=== PATIENT | female | born 1995 | race Caucasian/White ===

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

== ENCOUNTER 2017-05-13 22:53 | Emergency (ER) | payer OTHER ==
[2017-05-13 23:35] VITALS: BP 114/61; PULSE 84; RESP 18; TEMP 99
[2017-05-13] MEDS ORDERED: AMOXIC-POT CLAV 875-125MG 1 EACH TAB PO STA (23:49)
--- NOTE | 2017-05-13 23:52 | ED ---
Medical Clearance HPI - General Chief complaint: Medical Clearance Stated complaint: HALF-WAY CLEARANCE Time Seen by Provider: 05/13/17 23:01 Source: patient Mode of arrival: ambulatory - History of Present Illness Initial comments: 21-year-old female patient presents to the emergency department accompanied by [employer]. They are requesting medical clearance. Patient admits to using crack this evening. Patient states that she has done this in the past and currently feels normal. She denies any injuries or physical symptoms. Patient states that over the last couple of weeks she has had bilateral ear pain and fullness with decreased hearing. She states that this has been bothering her but she has been unable to get it checked out. She denies any fevers or chills. Denies any upper respiratory symptoms. Patient denies any recent rash, shortness breath, chest pain, abdominal pain, nausea, vomiting, diarrhea, constipation, back pain, numbness, tingling, dizziness, weakness, hematuria, dysuria, urinary urgency, urinary frequency, headache, visual changes, or any other complaints. Home medications: Previous Rx's Medication Instructions Recorded Amoxic-Pot Clav 875-125Mg 1 tab PO Q12HR #20 tablet 05/13/17 [Augmentin 875-125] Allergies/Adverse reactions: Allergies Allergy/AdvReac Type Severity Reaction Status Date / Time Tetanus Vaccines and Toxoid AdvReac Swelling Verified 05/13/17 23:36 Review of Systems ROS Statement: Those systems with pertinent positive or pertinent negative responses have been documented in the HPI. ROS Other: All systems not noted in ROS Statement are negative. Past Medical History Past Medical History: No Reported History History of Any Multi-Drug Resistant Organisms: None Reported Past Surgical History: No Surgical Hx Reported Past Psychological History: Depression Smoking Status: Never smoker Past Alcohol Use History: None Reported Past Drug Use History: Cocaine, Heroin, Marijuana General Exam Limitations: no limitations General appearance: alert, in no apparent distress, other (Physical well- developed, well-nourished adult female patient in no acute distress. Vital signs upon presentation are temperature 99.0F, pulse 84, respirations 18, blood pressure 114/61, pulse ox 96% on room air.) Head exam: Present: atraumatic, normocephalic, normal inspection Eye exam: Present: normal appearance, PERRL, EOMI. Absent: scleral icterus, conjunctival injection, periorbital swelling ENT exam: Present: normal exam, normal oropharynx, mucous membranes moist. Absent: TM's normal bilaterally (Bilateral tympanic membranes are bulging and erythematous. No canal erythema or drainage. No mastoid tenderness.) Respiratory exam: Present: normal lung sounds bilaterally. Absent: respiratory distress, wheezes, rales, rhonchi, stridor Cardiovascular Exam: Present: regular rate, normal rhythm, normal heart sounds. Absent: systolic murmur, diastolic murmur, rubs, gallop, clicks GI/Abdominal exam: Present: soft, normal bowel sounds. Absent: distended, tenderness, guarding, rebound, rigid Back exam: Present: normal inspection Neurological exam: Present: alert, oriented X3, CN II-XII intact Psychiatric exam: Present: normal affect, normal mood Skin exam: Present: warm, dry, intact, normal color. Absent: rash Course Vital Signs 05/13/17 23:31 Temperature 99.0 F Pulse Rate 84 Respiratory 18 Rate Blood Pressure 114/61 O2 Sat by Pulse 96 Oximetry Medical Decision Making - Medical Decision Making 21-year-old female patient is brought in by [employer] for medical clearance to accompany her to group home. Physical examination is unremarkable. Patient denies any physical symptoms or concerns other than bilateral ear pain and decreased hearing. Physical examination does reveal bilateral tympanic membrane erythema and bulging. Patient will be started on Augmentin. She'll be cleared medically for group home. Disposition Clinical Impression: Bilateral otitis media, Substance abuse Disposition: HOME SELF-CARE Condition: Good Instructions: Otitis Media (ED), Polysubstance Abuse (ED) Additional Instructions: Patient is medically clear for group home. Complete antibiotic prescription in full. Follow-up with your primary care physician upon completion of the antibiotics to ensure clearance of infection. If symptoms persist follow-up with ears nose and throat specialist. Return here immediately for any new, worsening, or concerning symptoms. Prescriptions: Amoxic-Pot Clav 875-125Mg [Augmentin 875-125] 1 tab PO Q12HR #20 tablet Referrals: Sariah Keller DO [Primary Care Provider] - 1-2 days Time of Disposition: 23:52
== END 2017-05-14 00:08 | disposition home or self-care (01) ==
LOC: EC 22:53
DX: H66.93 Otitis media, unspecified, bilateral (principal); F19.10 Other psychoactive substance abuse, uncomplicated; Z88.7 Allergy status to serum and vaccine
CPT/HCPCS: 99282

== ENCOUNTER 2017-12-31 16:56 | Emergency (ER) | payer OTHER ==
[2017-12-31 17:05] VITALS: BP 115/67; PULSE 90; TEMP 98.1
[2017-12-31] MEDS ORDERED: NALOXONE 0.4 MG/ML 10 ML VIAL IVP STA (17:34)
[2017-12-31] MEDS ORDERED: ONDANSETRON 4 MG/2 ML VIAL IVP STA (17:34)
[2017-12-31] MEDS ORDERED: SODIUM CHLORIDE 0.9% 500 ML IV STA (17:34)
[2017-12-31 17:45] VITALS: RESP 14
--- NOTE | 2017-12-31 18:03 | ED ---
General Adult HPI - General Chief complaint: Overdose Stated complaint: Overdose Time Seen by Provider: 12/31/17 17:00 Source: patient, RN notes reviewed, old records reviewed Mode of arrival: EMS Limitations: no limitations - History of Present Illness Initial comments: This is a 22-year-old female to the ER for evaluation. Patient presents today for evaluation regards to overdose. No history of psychiatric illness no history of depression or history of drug abuse. Patient's has a known history of opiate use. Patient presented ER today for heroin overdose. - Related Data Home Medications Medication Instructions Recorded Confirmed No Known Home Medications 12/31/17 12/31/17 Allergies Allergy/AdvReac Type Severity Reaction Status Date / Time Tetanus Vaccines and Toxoid AdvReac Swelling Verified 12/31/17 17:19 Review of Systems ROS Statement: Those systems with pertinent positive or pertinent negative responses have been documented in the HPI. ROS Other: All systems not noted in ROS Statement are negative. Past Medical History Past Medical History: No Reported History History of Any Multi-Drug Resistant Organisms: None Reported Past Surgical History: No Surgical Hx Reported Past Psychological History: Depression Smoking Status: Current every day smoker Past Alcohol Use History: None Reported Past Drug Use History: Heroin General Exam Limitations: no limitations General appearance: alert, in no apparent distress, lethargic Head exam: Present: atraumatic, normocephalic, normal inspection Eye exam: Present: normal appearance, PERRL, EOMI. Absent: scleral icterus, conjunctival injection, periorbital swelling ENT exam: Present: normal exam, mucous membranes moist Neck exam: Present: normal inspection. Absent: tenderness, meningismus, lymphadenopathy Respiratory exam: Present: normal lung sounds bilaterally. Absent: respiratory distress, wheezes, rales, rhonchi, stridor Cardiovascular Exam: Present: regular rate, normal rhythm, normal heart sounds. Absent: systolic murmur, diastolic murmur, rubs, gallop, clicks GI/Abdominal exam: Present: soft, normal bowel sounds. Absent: distended, tenderness, guarding, rebound, rigid Extremities exam: Present: normal inspection, full ROM, normal capillary refill. Absent: tenderness, pedal edema, joint swelling, calf tenderness Back exam: Present: normal inspection Neurological exam: Present: alert, oriented X3, CN II-XII intact Psychiatric exam: Present: normal affect, normal mood Skin exam: Present: warm, dry, intact, normal color. Absent: rash Course Vital Signs 12/31/17 12/31/17 16:58 17:44 Temperature 98.1 F Pulse Rate 90 Respiratory 18 14 Rate Blood Pressure 115/67 - Reevaluation(s) Reevaluation #1: 12/31/17 18:03 Patient's level of consciousness improved with Narcan Medical Decision Making - Medical Decision Making 22-year-old female the ER status post heroin abuse and overdose. Patient given Narcan, patient awake alert and can be discharged home Disposition Clinical Impression: Substance-induced psychotic disorder, Heroin use disorder, severe, dependence, Drug overdose, Poisoning by opiate or related narcotic Disposition: HOME SELF-CARE Condition: Good Instructions: Opioid Use Disorder (ED) Is patient prescribed a controlled substance at d/c from ED?: No Referrals: Sariah Keller DO [Primary Care Provider] - 1-2 days
== END 2017-12-31 18:33 | disposition home or self-care (01) ==
LOC: EC 16:56
DX: F11.20 Opioid dependence, uncomplicated (principal); T40.1X1A Poisoning by heroin, accidental (unintentional), initial encounter; F19.959 Other psychoactive substance use, unspecified with psychoactive substance-induced psychotic disorder, unspecified; F32.9 Major depressive disorder, single episode, unspecified; F17.200 Nicotine dependence, unspecified, uncomplicated; Z88.7 Allergy status to serum and vaccine
CPT/HCPCS: 99284; 96374; 96375; J2310; J2405

== ENCOUNTER 2019-05-24 11:06 | Emergency (ER) | payer OTHER ==
[2019-05-24 11:13] VITALS: TEMP 99.1
[2019-05-24] MEDS ORDERED: SODIUM CHLORIDE 0.9% 1,000 ML IV ONE (11:30)
--- NOTE | 2019-05-24 11:41 | ED ---
General Adult HPI - General Chief complaint: Altered Mental Status Stated complaint: Overdose Time Seen by Provider: 05/24/19 11:10 Source: patient, EMS, RN notes reviewed, old records reviewed Limitations: no limitations - History of Present Illness Initial comments: This is a 23-year-old female who presents emergency Department and states that she is a drug addict. Patient states she's been clean for a little while. Patient states that this morning she took 5 mg and snorted it. Patient denies any other drug use. Patient denies any drinking. Patient states it's the first time in a while that she has done any drugs. Patient denies any chest pain difficulty breathing first breath per patient denies any headache. Patient denies any abdominal pain. Patient denies any nausea vomiting diarrhea. Patient denies any fever chills. Patient denies any trauma. - Related Data Home Medications Medication Instructions Recorded Confirmed Albuterol Inhaler [Ventolin Hfa 2 puff INHALATION RT-Q4H PRN 05/24/19 05/24/19 Inhaler] Amoxic-Pot Clav 875-125Mg 1 tab PO BID 05/24/19 05/24/19 [Augmentin 875-125] Cetirizine HCl 10 mg PO DAILY 05/24/19 05/24/19 Fluticasone Nasal [place] [Flonase 1 spray EA NOSTRIL BID 05/24/19 05/24/19 Nasal [place]] Ibuprofen [Motrin] 600 mg PO Q8HR PRN 05/24/19 05/24/19 Allergies Allergy/AdvReac Type Severity Reaction Status Date / Time Tetanus Vaccines and Toxoid AdvReac Swelling Verified 05/24/19 12:12 Review of Systems ROS Statement: Those systems with pertinent positive or pertinent negative responses have been documented in the HPI. ROS Other: All systems not noted in ROS Statement are negative. Past Medical History Past Medical History: No Reported History History of Any Multi-Drug Resistant Organisms: None Reported Past Surgical History: No Surgical Hx Reported Past Psychological History: Depression Smoking Status: Current every day smoker Past Alcohol Use History: None Reported Past Drug Use History: Heroin General Exam - General Exam Comments Initial Comments: GENERAL: Patient is well-developed and well-nourished. Patient is nontoxic and well- hydrated and is in no acute distress. Patient is very tired but easily arousable. ENT: Neck is soft and supple. No significant lymphadenopathy is noted. Oropharynx is clear. Moist mucous membranes. Neck has full range of motion without eliciting any pain. EYES: The sclera were anicteric and conjunctiva were pink and moist. Extraocular movements were intact and pupils were equal round and reactive to light. Eyelids were unremarkable. PULMONARY: Unlabored respirations. Good breath sounds bilaterally. No audible rales rhonchi or wheezing was noted. CARDIOVASCULAR: There is a regular rate and rhythm without any murmurs gallops or rubs. ABDOMEN: Soft and nontender with normal bowel sounds. SKIN: Skin is clear with no lesions or rashes and otherwise unremarkable. NEUROLOGIC: Patient is alert and oriented x3. Cranial nerves II through XII are grossly intact. Motor and sensory are also intact. Normal speech, volume and content. Symmetrical smile. MUSCULOSKELETAL: Normal extremities with adequate strength and full range of motion. LYMPHATICS: No significant lymphadenopathy is noted PSYCHIATRIC: Normal psychiatric evaluation. Limitations: no limitations Course Vital Signs 05/24/19 11:11 Temperature 99.1 F Pulse Rate 130 H Respiratory 10 L Rate Blood Pressure 131/61 O2 Sat by Pulse 88 L Oximetry Medical Decision Making - Medical Decision Making Patient became more alert and she was in the emergency department. She still was a little bit tired but she was alert and oriented 4 was able to ambulate without problem or stumbling. Patient was told that she needed to stay so that we could make sure that she did not become lethargic. Patient refused she stated she wanted to sign out AMA she lives things to do and she was adamant about this. Patient signed out AMA understanding that symptoms may worsen upon discharge - Lab Data Lab Results 05/24/19 05/24/19 Range/Units 12:00 12:00 Urine Color [place] Urine Appearance Slightly Cloudy H (Clear) Urine pH 6.0 (5.0-8.0) Ur Specific [place] 1.030 (1.001-1.035) Urine Protein 1+ (Negative) Urine Glucose (UA) 1+ H (Negative) Urine Ketones Negative (Negative) Urine Blood Negative (Negative) Urine Nitrite Negative (Negative) Urine Bilirubin Negative (Negative) Urine Urobilinogen <2.0 (<2.0) mg/dL Ur Leukocyte Esterase Negative (Negative) Urine RBC 1 (0-5) /hpf Urine WBC 10 H (0-5) /hpf Ur Squamous Epith Cells 11 H (0-4) /hpf Urine Bacteria Rare H (None) /hpf Cellular Casts 1 (0) /lpf Hyaline Casts 1 (0-2) /lpf Urine Mucus Many H (None) /hpf Urine Opiates Screen Not Detected (NotDetected) Ur Oxycodone Screen Not Detected (NotDetected) Urine Methadone Screen Not Detected (NotDetected) Ur Propoxyphene Screen Not Detected (NotDetected) Ur Barbiturates Screen Not Detected (NotDetected) U Tricyclic Antidepress Not Detected (NotDetected) Ur Phencyclidine Scrn Not Detected (NotDetected) Ur Amphetamines Screen Not Detected (NotDetected) U Methamphetamines Scrn Not Detected (NotDetected) U Benzodiazepines Scrn Not Detected (NotDetected) Urine Cocaine Screen Not Detected (NotDetected) U Marijuana (THC) Screen Not Detected (NotDetected) Disposition Clinical Impression: Opiate overdose Disposition: Left Against Medical Advice Instructions (If sedation given, give patient instructions): Narcotic Safety (ED) Referrals: None,Stated [Primary Care Provider] - 1-2 days Time of Disposition: 12:49
[2019-05-24 12:18] LABS: Amphetamine Screen,Urine Not Detected (NotDetected); Barbiturate Screen,Urine Not Detected (NotDetected); Benzodiazepines Screen,Urine Not Detected (NotDetected); Cocaine Screen,Urine Not Detected (NotDetected); Methadone Screen, Urine Not Detected (NotDetected); Opiate Screen,Urine Not Detected (NotDetected); Oxycodone Screen, Urine Not Detected (NotDetected); Phencyclidine Screen,Urine Not Detected (NotDetected); Tricyclic Antidepressant,Urine Not Detected (NotDetected); Urn Cannabinoid Scrn Not Detected (NotDetected)
[2019-05-24 12:35] LABS: Bacteria,Urine Rare /hpf; Cellular Casts,Urine 1 /lpf (0); Hyaline Casts,Urine 1 /lpf (0-2); Mucus,Urine Many /hpf; RBC,Urine 1 /hpf (0-5); Squamous Epithelial Cell,Urine 11 /hpf (0-4); WBC,Urine 10 /hpf (0-5)
[2019-05-24 12:37] LABS: Appearance,Urine Slightly Cloudy (Clear); Color,Urine Amber; Protein,Urine 1+ (Negative)
[2019-05-24 12:38] LABS: Bilirubin,Urine Negative (Negative); Blood,Urine Negative (Negative); Glucose,Urine (UA) 1+ (Negative); Ketones,Urine Negative (Negative); Leukocyte Esterase,Urine Negative (Negative); Nitrite,Urine Negative (Negative); Urobilinogen,Urine <2.0 mg/dL (<2.0)
[2019-05-24 13:00] VITALS: BP 121/87; PULSE 115; RESP 18
== END 2019-05-24 13:00 | disposition left against medical advice (07) ==
LOC: EC 11:06
DX: T40.601A Poisoning by unspecified narcotics, accidental (unintentional), initial encounter (principal); F17.200 Nicotine dependence, unspecified, uncomplicated; Z79.51 Long term (current) use of inhaled steroids; Z79.899 Other long term (current) drug therapy; Z88.7 Allergy status to serum and vaccine
CPT/HCPCS: 80306; 81001; 96360; 99285

== ENCOUNTER 2019-05-24 21:48 | Emergency (ER) | payer OTHER ==
[2019-05-24 21:59] VITALS: PULSE 100; RESP 18; TEMP 98.6
--- NOTE | 2019-05-24 22:20 | ED ---
Overdose HPI - General Chief Complaint: Overdose Stated Complaint: Overdose Source: patient, EMS Mode of arrival: EMS Limitations: no limitations - History of Present Illness Initial Comments: Indigo is a 23-year-old female with a history of substance abuse. Patient was recently living in a [facility]-[place] home, she been clean for 30 days, last night she obtained fentanyl and was using. This morning she was found to be positive on her random drug testing was subsequently sent to the hospital for evaluation. Patient was released from her three-quarter's home and left the hospital with her mother went to her mother's home. Patient reports she still had Karlos in her possession and continue to use throughout the day. Patient reports snorting fentanyl multiple times. She states that she previously had a high tolerance was using the same amount she is to and must of overdose. Her mother found her and treat her with a milligrams of intranasal fentanyl. Patient then became more awake and alert, EMS arrived on scene and transported patient to the hospital. Patient adamantly denies any suicidal thoughts or thoughts of self- harm. She reports this was an accidental overdose. She reports that her visit earlier was due to being positive for fentanyl but not an overdose. Patient states that she thinks this is just due to her decreased tolerance. - Related Data Home Medications Medication Instructions Recorded Confirmed Albuterol Inhaler [Ventolin Hfa 2 puff INHALATION RT-Q4H PRN 05/24/19 05/24/19 Inhaler] Amoxic-Pot Clav 875-125Mg 1 tab PO BID 05/24/19 05/24/19 [Augmentin 875-125] Cetirizine HCl 10 mg PO DAILY 05/24/19 05/24/19 Fluticasone Nasal [place] [Flonase 1 spray EA NOSTRIL BID 05/24/19 05/24/19 Nasal [place]] Ibuprofen [Motrin] 600 mg PO Q8HR PRN 05/24/19 05/24/19 Previous Rx's Medication Instructions Recorded Naloxone HCl [Narcan] 4 mg NASAL ONCE PRN #2 units 05/25/19 Allergies Allergy/AdvReac Type Severity Reaction Status Date / Time Tetanus Vaccines and Toxoid AdvReac Swelling Verified 05/24/19 12:12 Review of Systems ROS Statement: Those systems with pertinent positive or pertinent negative responses have been documented in the HPI. ROS Other: All systems not noted in ROS Statement are negative. Past Medical History Past Medical History: No Reported History History of Any Multi-Drug Resistant Organisms: None Reported Past Surgical History: No Surgical Hx Reported Past Psychological History: Depression Smoking Status: Current every day smoker Past Alcohol Use History: None Reported Past Drug Use History: Heroin General Exam - General Exam Comments Initial Comments: Physical Exam GENERAL: Patient is well-developed and well-nourished. Patient is nontoxic and well-hydrated and is in no distress. HENT: Normocephalic, Atraumatic. EYES: PERRL, EOMI PULMONARY: Unlabored respirations. CARDIOVASCULAR: RRR Warm and well perfused extremities ABDOMEN: Non-distended SKIN: No rashes or bruising : Deferred NEUROLOGIC: Alert and oriented Normal speech Normal gait MUSCULOSKELETAL: Moving all extremities with no apparent injury PSYCHIATRIC: No SI/HI Limitations: no limitations Course Vital Signs 05/24/19 05/25/19 21:53 00:25 Temperature 98.6 F Pulse Rate 100 100 Respiratory 18 18 Rate Blood Pressure 123/77 121/87 O2 Sat by Pulse 100 98 Oximetry Medical Decision Making - Medical Decision Making Patient was seen and evaluated history was obtained from patient, mother and EMS 23-year-old female with a history of narcotic abuse who was clean for 30 days and begin using again last night, reports snorting Karlos throughout the day today, was found by her mother to be minimally responsive and was given intranasal fentanyl with improvement in her mental status and breathing. Patient adamantly denies any suicidal ideation or intent to hurt herself. Patient believes her overdose is secondary to previously having a tolerance which has decreased secondary to her sobriety. Mom states she hasn't noticed any suicidal statements or thoughts. Patient is not petitioned. Patient was observed for 2 hours, remained awake alert oriented with no acute distress therefore was discharged home in stable condition. Patient was provided with a prescription for Narcan upon discharge Disposition Clinical Impression: Accidental drug overdose Disposition: HOME SELF-CARE Condition: Stable Instructions (If sedation given, give patient instructions): Adult Overdose (ED) Prescriptions: Naloxone HCl [Narcan] 4 mg NASAL ONCE PRN #2 units PRN Reason: Respiratory Distress Is patient prescribed a controlled substance at d/c from ED?: No Referrals: None,Stated [Primary Care Provider] - 1-2 days
--- NOTE | 2019-05-24 23:10 | XR ---
EXAMINATION TYPE: XR chest 2V DATE OF EXAM: 05/24/2019 COMPARISON: NONE HISTORY: Overdose TECHNIQUE: FINDINGS: Heart and mediastinum are normal. Lungs are clear. Diaphragm is normal. Bony thorax appears normal. IMPRESSION: Normal chest
[2019-05-25 00:28] VITALS: BP 121/87
== END 2019-05-25 00:50 | disposition home or self-care (01) ==
LOC: EC 21:48
DX: T40.4X1A Poisoning by other synthetic narcotics, accidental (unintentional), initial encounter (principal); F17.200 Nicotine dependence, unspecified, uncomplicated; Z79.899 Other long term (current) drug therapy; Z88.7 Allergy status to serum and vaccine; Y92.009 Unspecified place in unspecified non-institutional (private) residence as the place of occurrence of the external cause
CPT/HCPCS: 71046; 99284

== ENCOUNTER 2019-12-16 21:44 | Inpatient (IN) | payer MEDICAID, OTHER ==
--- NOTE | 2019-12-16 22:10 | ED ---
Psych HPI - General Source: family, police, RN notes reviewed, old records reviewed Mode of arrival: ambulatory - History of Present Illness MD Complaint: suicidal ideation, altered mental status Associated Psychiatric Symptoms: depression, suicidal ideation History of same: Yes Quality: constant Improves With: none, medication Associated Symptoms: confusion Treatments Prior to Arrival: placed on mental health hold If Self Harm: admits thoughts of self harm <Scar Humphrey - Last Filed: 12/16/19 22:07> <Sarbjit Dhillon - Last Filed: 12/17/19 01:56> - General Chief Complaint: Psychiatric Symptoms Stated Complaint: Mental Health Time Seen by Provider: 12/16/19 21:55 - History of Present Illness Initial Comments: This is a 24 female to the ED compaliing of need for psychiatric evaluation, no medical history, history of psychiatric illness, patient presents by PD under petition (Scar Humphrey) - Related Data Home Medications Medication Instructions Recorded Confirmed Cetirizine HCl 10 mg PO DAILY 05/24/19 12/16/[address] [place] [Flonase 1 spray EA NOSTRIL DAILY 05/24/19 12/16/[address] [place]] Vivitrol Injection 1 injection IM ONCE 12/16/19 12/16/19 Allergies Allergy/AdvReac Type Severity Reaction Status Date / Time Tetanus Vaccines and Toxoid AdvReac Swelling Verified 12/16/19 23:39 Review of Systems ROS Other: All systems not noted in ROS Statement are negative. <Scar Humphrey - Last Filed: 12/16/19 22:07> ROS Other: All systems not noted in ROS Statement are negative. <Sarbjit Dhillon - Last Filed: 12/17/19 01:56> ROS Statement: Those systems with pertinent positive or pertinent negative responses have been documented in the HPI. Past Medical History Past Medical History: No Reported History Additional Past Medical History / Comment(s): bacterial vaginosis, depression History of Any Multi-Drug Resistant Organisms: None Reported Past Surgical History: No Surgical Hx Reported Past Psychological History: Depression Smoking Status: Current every day smoker Past Alcohol Use History: None Reported Past Drug Use History: Heroin <Scar Humphrey - Last Filed: 12/16/19 22:07> General Exam Limitations: no limitations General appearance: alert, in no apparent distress Head exam: Present: atraumatic, normocephalic, normal inspection Eye exam: Present: normal appearance, PERRL, EOMI. Absent: scleral icterus, conjunctival injection, periorbital swelling ENT exam: Present: normal exam, mucous membranes moist Neck exam: Present: normal inspection. Absent: tenderness, meningismus, lymphadenopathy Respiratory exam: Present: normal lung sounds bilaterally. Absent: respiratory distress, wheezes, rales, rhonchi, stridor Cardiovascular Exam: Present: regular rate, normal rhythm, normal heart sounds. Absent: systolic murmur, diastolic murmur, rubs, gallop, clicks GI/Abdominal exam: Present: soft, normal bowel sounds. Absent: distended, tenderness, guarding, rebound, rigid Extremities exam: Present: normal inspection, full ROM, normal capillary refill. Absent: tenderness, pedal edema, joint swelling, calf tenderness Back exam: Present: normal inspection Neurological exam: Present: alert, oriented X3, CN II-XII intact Psychiatric exam: Present: normal affect, normal mood Skin exam: Present: warm, dry, intact, normal color. Absent: rash <Scar Humphrey - Last Filed: 12/16/19 22:07> Course <Scar Humphrey - Last Filed: 12/16/19 22:07> Vital Signs 12/16/19 21:44 Temperature 98.1 F Pulse Rate 78 Respiratory 20 Rate Blood Pressure 110/65 O2 Sat by Pulse 97 Oximetry - Reevaluation(s) Reevaluation #1: 12/16/19 22:10 Medical records reviewed 12/16/19 22:10 Medically clear for psychiatric evaluation (Scar Humphrey) Medical Decision Making <Sarbjit Dhillon - Last Filed: 12/17/19 01:56> - Medical Decision Making I did go to see the patient for purposes of filing the clinical certification. The patient had just finished the EPS evaluation. At this time she is angry, demanding to leave. She is refusing to discuss the episode with me. Clinical certificate is filed as patient not forthcoming regarding the matters leading to her arrival here. (Sarbjit Dhillon) Disposition <Scar Humphrey - Last Filed: 12/16/19 22:07> <Sarbjit Dhillon - Last Filed: 12/17/19 01:56> Clinical Impression: Mood disorder Disposition: ADMITTED IP TO THIS [facility] Condition: Undetermined Referrals: None,Stated [Primary Care Provider] - 1-2 days
[2019-12-17] MEDS ORDERED: ZIPRASIDONE 20 MG VIAL IM PRN (02:26)
[2019-12-17] MEDS ORDERED: MAG HYDROX/AL HYDROX/SIMETH 30 ML CUP PO PRN (02:26)
[2019-12-17] MEDS ORDERED: ACETAMINOPHEN TAB 325 MG TAB PO PRN (02:26)
[2019-12-17] MEDS ORDERED: MAGNESIUM HYDROXIDE 2,400 MG/10 ML CUP PO PRN (02:26)
[2019-12-17] MEDS ORDERED: IBUPROFEN 400 MG TAB PO PRN (03:29)
--- NOTE | 2019-12-17 06:13 | P.MDCNMH ---
History of Present Illness H&P Date: 12/17/19 Chief Complaint: medical evaluation 24 year old female with no significant past medical history patient admits to history of IVDA (cocain , heroin) she is trying to quit, but claims that she keeps relapsing. she relapsed today and snorted heroin, and she believes that her boyfriend walked in and did not know that she relapsed, she might have also said something , and made some suicidal threats, for which her boyfriend called police and petitioned her for psych evaluation. she currently denies any suicidal or homicidal ideation. she denies any medical complaints, denies any fever, chills, chest pain or SOB. she reports some mild headache after she just threw up, because she ate so fast multiple snack. she feels that she is still high Review of Systems Pertinent positives as noted in HPI. All other systems were reviewed and are negative Past Medical History Past Medical History: No Reported History Additional Past Medical History / Comment(s): bacterial vaginosis, depression History of Any Multi-Drug Resistant Organisms: None Reported Past Surgical History: No Surgical Hx Reported Past Psychological History: Depression Smoking Status: Current every day smoker Past Alcohol Use History: None Reported Past Drug Use History: Heroin - Past Family History Family Family Medical History: No Reported History Medications and Allergies Home Medications Medication Instructions Recorded Confirmed Type Cetirizine HCl 10 mg PO DAILY 05/24/19 12/16/19 History Fluticasone Nasal [place] [Flonase 1 spray EA NOSTRIL DAILY 05/24/19 12/16/19 History Nasal [place]] Vivitrol Injection 1 injection IM ONCE 12/16/19 12/16/19 History Allergies Allergy/AdvReac Type Severity Reaction Status Date / Time Tetanus Vaccines and Toxoid AdvReac Swelling Verified 12/16/19 23:39 Physical Exam Vitals: Vital Signs Temp Pulse Pulse Resp BP BP Pulse Ox 12/17/19 02:50 97.5 F L 92 18 114/67 98 12/16/19 21:44 98.1 F 78 20 110/65 97 Intake and Output 12/16/19 12/16/19 12/17/19 14:59 22:59 06:59 Other: Weight 50.349 kg Constitutional: No acute distress, conversant, pleasant Eyes: Anicteric sclerae, moist conjunctiva, Pupils equal round reactive to light ENMT: NC/AT Oropharynx clear, no erythema, or exudates Neck: Supple, FROM, no masses, or JVD No carotid bruits No thyromegaly Lungs: Clear to auscultation Clear to percussion Normal respiratory effort, no accessory muscle use Cardiovascular: Heart regular in rate and rhythm, No murmurs, gallops, or rubs No peripheral edema Abdominal: Soft Nontender, no guarding, rebound or rigidity Abdomen moving with respiration Normoactive bowel sounds No hepatomegaly, No splenomegaly No palpable mass No abdominal wall hernia noted Skin: Normal temperature, tone, texture, turgor No induration No subcutaneous nodules No rash, lesions No ulcers Extremities: No digital cyanosis No clubbing Pedal pulses intact and symmetrical Radial pulses intact and symmetrical No calf tenderness Psychiatric: Alert and oriented to person, place and time Appropriate affect fair judgement Neuro Muscles Strength 5/5 in all 4 extremities Sensation to light touch grossly present throughout Cranial nerves II-XII grossly intact No focal sensory deficits Lymphatics: no palpable cervical or supraclavicular , or inguinal lymph nodes Cranial Nerve Examination - Cranial Nerves Cranial Nerve II- Optic: Intact Cranial Nerve III- Oculomotor: Intact Cranial Nerve IV- Trochlear: Intact Cranial Nerve V- Trigeminal: Intact Cranial Nerve - Abducens: Intact Cranial Nerve VII- Facial: Intact Cranial Nerve VIII- Auditory: Intact Cranial Nerve IX- Glossopharyngeal: Intact Cranial Nerve X- Vagus: Intact Cranial Nerve XI- Accessory: Intact Cranial Nerve XII- Hypoglossal: Intact Assessment and Plan Assessment: Suicidal ideation Heroin abuse Management per psych polysubstance abuse headache, symptomtic control with motrin no focal neuro deficits follow up labs Thank you for allowing us to participate in the care of this patient. We will follow peripherally. Do not hesitate to contact us with questions. Someone can be reached from the [facility] hospitalist group at all hours of the day at [phone].
[2019-12-17] MEDS: NICOTINE 14MG/24HR PATCH TRANSDERM SCH (10:06)
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
[2019-12-17] MEDS: LORazepam 1 MG TAB PO PRN ×2 (12:47→20:36)
[2019-12-17] MEDS: lamoTRIgine 25 MG TAB PO SCH ×2 (16:08→20:36)
[2019-12-18 06:26] VITALS: RESP 16; TEMP 98.1
[2019-12-18] MEDS: lamoTRIgine 25 MG TAB PO SCH (08:44)
[2019-12-18] MEDS: NICOTINE 14MG/24HR PATCH TRANSDERM SCH (08:45)
[2019-12-18 08:46] VITALS: BP 119/54; PULSE 105
[2019-12-18] MEDS ORDERED: lamoTRIgine 25 MG TAB PO SCH (09:00)
[2019-12-18 09:46] LABS: Basophils % (A) 1 %; Eosinophils # (A) 0.1 k/uL (0-0.7); Eosinophils % (A) 1 %; HCT 44.3 % (34.0-46.0); HGB 13.7 gm/dL (11.4-16.0); Lymphocytes # (A) 1.2 k/uL (1.0-4.8); Lymphocytes % (A) 18 %; MCH 28.6 pg (25.0-35.0); MCV 92.2 fL (80.0-100.0); Mean Platelet Volume 7.4; Monocytes # (A) 0.3 k/uL (0-1.0); Monocytes % (A) 4 %; Neutrophils % (A) 74 %; Platelet Count 244 k/uL (150-450); RDW 13.8 % (11.5-15.5); WBC 6.7 k/uL (3.8-10.6)
--- NOTE | 2019-12-18 10:00 | DS ---
DISCHARGE SUMMARY DATE OF ADMISSION: 12/17/2019 DATE OF DISCHARGE: 12/18/2019 CONSULTATIONS: [employer] Dr. De La Paz for history and physical and medical management. DISCHARGE DIAGNOSIS: 1. Opiate use disorder. 2. Mood disorder, not otherwise specified. 3. Personality disorder. 4. Nicotine dependence. HISTORY OF PRESENT ILLNESS: The patient is a 24-year-old single female with extensive history of heroin addiction for the last 5 years and she has been in and out of rehab for this. She was clean for 4 weeks prior to her last relapse just one day prior to the hospitalization. The patient was high when she did text her boyfriend telling him that he has to bring Narcan and she is killing herself and do not forget my " song". Her boyfriend did contact the police who filed the petition. For complete history and physical, please refer to my evaluation. HOSPITAL COURSE: When the patient did arrive to the emergency room she was agitated. She refused to give her urine for urine drug screen, even she refused to give her blood for routine blood workup. She did receive p.r.n. medication and seems that she is starting to be more cooperative and she did sign voluntary admission. She was seen on a daily basis and she was attending group therapy. I did discuss with her referral to inpatient substance abuse, as she stable and denied any suicidal or homicidal ideation, but she stated that she does prefer to go to outpatient substance abuse as she just finished [facility] 4 weeks ago. The patient stated that she has been having mood swings all her life, but describes mood swings as waking up very happy and getting numb and down by the end of the day. She did agree to sign med consent to start lamotrigine as a mood stabilizer. The patient denied any side effects from the medication and she was able to tolerate it. She was asking for Ativan p.r.n. so I discontinued the Ativan to avoid cross addiction, especially as it seems that she has a tendency to be addicted to different drugs since age 16. MENTAL STATUS EXAM: At the time of the discharge, the patient is a very young female who looks her stated age. Attention seeking child-like behavior and attitude but easy to redirect. The patient has fair hygiene and grooming. There is no agitation and she is very easy to redirect. Her speech is fluent and non pressured. Reports that her mood is "good". Affect is appropriate to thought content. She denied having any suicidal or homicidal ideation, intent, or plan. She denied any auditory or visual hallucination. There is no evidence of any delusional thought or content. She is alert and oriented x3. Her insight and judgment are improving. IMPRESSION: 1. Opiate use disorder, severe. 2. Mood disorder, not otherwise specified. 3. Personality disorder. 4. Nicotine dependence. PLAN: The patient will be discharged today, as she is refusing referral to inpatient chemical dependency. She did agree to go to outpatient substance abuse at [facility]. The patient is not currently an imminent threat to herself or others. Patient was given 4 week supply of lamotrigine 50 mg twice a day as a mood stabilizer. The patient was instructed to avoid any illicit drug use and abstain completely from heroin. She was informed and educated on the adverse effects of the heroin on her physical and mental health. Patient verbally agree and understood and she will be going to outpatient substance abuse. The patient was instructed to return to the hospital or seek medical care if any symptoms reoccur. MMODL / IJN: [id number] /
[2019-12-18 10:07] LABS: ALT 15 U/L (4-34); AST 24 U/L (14-36); African American GFR (CKD) >90 (>60 ml/min/1.73 sqM); Albumin 4.1 g/dL (3.5-5.0); Alkaline Phosphatase 59 U/L (38-126); Anion Gap 5 mmol/L; Blood Urea Nitrogen 17 mg/dL (7-17); Calcium 9.1 mg/dL (8.4-10.2); Carbon Dioxide 30 mmol/L (22-30); Chloride 105 mmol/L (98-107); Cholesterol 128 mg/dL (<200); Glucose 93 mg/dL (74-99); HDL Cholesterol 54 mg/dL (40-60); LDL Cholesterol,Calculated 66 mg/dL (0-99); Non-African American GFR(CKD) >90 (>60 ml/min/1.73 sqM); Potassium 4.8 mmol/L (3.5-5.1); Sodium 140 mmol/L (137-145); Total Bilirubin 0.7 mg/dL (0.2-1.3); Total Protein 6.8 g/dL (6.3-8.2); Triglycerides 39 mg/dL (<150)
[2019-12-18] MEDS ORDERED: lamoTRIgine 25 MG TAB PO ONE (10:27)
[2019-12-18 18:00] LABS: Hemoglobin A1C 5.1 % (4.0-6.0)
== END 2019-12-18 11:58 | disposition home or self-care (01) | DRG 885 ==
LOC: EC 21:44 → 3MHU 12-17 02:19
PROVIDERS: ADMIT Psychiatry & Neurology Psychiatry; ATTEND Psychiatry & Neurology Psychiatry
DX: F33.9 Major depressive disorder, recurrent, unspecified (principal); R45.851 Suicidal ideations; F11.20 Opioid dependence, uncomplicated; F60.9 Personality disorder, unspecified; F17.200 Nicotine dependence, unspecified, uncomplicated; J30.2 Other seasonal allergic rhinitis; R45.1 Restlessness and agitation; R51 Headache; Z79.899 Other long term (current) drug therapy; Z87.42 Personal history of other diseases of the female genital tract; Z56.0 Unemployment, unspecified; Z91.410 Personal history of adult physical and sexual abuse; Z91.5 Personal history of self-harm; Z88.7 Allergy status to serum and vaccine; Z81.8 Family history of other mental and behavioral disorders; Z81.1 Family history of alcohol abuse and dependence
CPT/HCPCS: 80053; 80061; 82075; 83036; 84443; 85025; 99285

== ENCOUNTER 2019-12-21 21:36 | Emergency (ER) | payer OTHER ==
--- NOTE | 2019-12-21 22:04 | ED ---
Extremity Problem HPI - General Chief complaint: Extremity Problem,Nontraumatic Stated complaint: R Foot Pain Time Seen by Provider: 12/21/19 21:45 Source: patient Mode of arrival: ambulatory Limitations: no limitations - History of Present Illness Initial comments: 24-year-old female patient presents to the emergency department today for evaluation of numbness and tingling to the right leg from the knee down. Patient states that the sensation has a present for the last 2 days. Patient states at times it is worse than others. States when she wakes from sleep the leg will give out on her. Patient states that at times she is unable to perform dorsiflexion. Denies history of similar symptoms. Denies any known injury. Patient states that she did relapse on heroin four days ago so there is possibility she slept weird on it. She denies injecting drugs. She states she snorts heroin. Patient denies any headache, neck pain, back pain, chest pain, shortness of breath, dizziness, weakness, abdominal pain, nausea, vomiting, or difficulties with bowel movements or urination. - Related Data Home Medications Medication Instructions Recorded Confirmed Cetirizine HCl 10 mg PO DAILY 05/24/19 12/16/19 Fluticasone Nasal [place] [Flonase 1 spray EA NOSTRIL DAILY 05/24/19 12/16/19 Nasal [place]] Previous Rx's Medication Instructions Recorded lamoTRIgine [LaMICtal] 50 mg PO BID 30 Days tab 12/18/19 Allergies Allergy/AdvReac Type Severity Reaction Status Date / Time Tetanus Vaccines and Toxoid AdvReac Swelling Verified 12/21/19 21:43 Review of Systems ROS Statement: Those systems with pertinent positive or pertinent negative responses have been documented in the HPI. ROS Other: All systems not noted in ROS Statement are negative. Past Medical History Past Medical History: No Reported History Additional Past Medical History / Comment(s): bacterial vaginosis, depression History of Any Multi-Drug Resistant Organisms: None Reported Past Surgical History: No Surgical Hx Reported Past Psychological History: Depression Smoking Status: Current every day smoker Past Alcohol Use History: None Reported Past Drug Use History: Heroin - Past Family History Family Family Medical History: No Reported History General Exam Limitations: no limitations General appearance: alert, in no apparent distress, other (This is a well- developed, well-nourished adult female patient in no acute distress. Vital signs upon presentation are temperature 98.0F, pulse 87, respirations 16, blood pressure 108/65, pulse ox 99% on room air.) Respiratory exam: Present: normal lung sounds bilaterally. Absent: respiratory distress, wheezes, rales, rhonchi, stridor Cardiovascular Exam: Present: regular rate, normal rhythm, normal heart sounds. Absent: systolic murmur, diastolic murmur, rubs, gallop, clicks GI/Abdominal exam: Present: soft, normal bowel sounds. Absent: distended, tenderness, guarding, rebound, rigid Extremities exam: Present: normal inspection, full ROM, normal capillary refill, other (Skin to the right leg is pink, warm, dry. Cap refills less than 3 seconds. Pedal and posttibial pulses are 2+ and equal bilaterally. There is full active range of motion intact to the right ankle and right knee.). Absent: tenderness, pedal edema, joint swelling, calf tenderness Back exam: Present: normal inspection. Absent: vertebral tenderness Neurological exam: Present: alert, oriented X3, CN II-XII intact Psychiatric exam: Present: normal affect, normal mood Skin exam: Present: warm, dry, intact, normal color. Absent: rash Course Vital Signs 12/21/19 12/21/19 21:37 22:36 Temperature 98.0 F 97.9 F Pulse Rate 87 84 Respiratory 16 18 Rate Blood Pressure 108/65 103/69 O2 Sat by Pulse 99 96 Oximetry Medical Decision Making - Medical Decision Making 24-year-old female patient presents to the emergency department today for evaluation of paresthesia to the right lower leg. Physical examination is unremarkable. She is neurologically intact. Neurovascular status is intact. X-rays of the knee and tib-fib were obtained and were negative. She will be discharged home with a neurology for further evaluation as soon as possible. Return parameters were discussed in detail. She verbalizes understanding and agrees with this plan. - Radiology Data Radiology results: report reviewed, image reviewed Disposition Clinical Impression: Right leg paresthesias Disposition: HOME SELF-CARE Condition: Good Instructions (If sedation given, give patient instructions): Paresthesia (ED) Additional Instructions: Follow-up with neurologist for further evaluation as soon as possible. Follow- up through primary care physician for recheck in 1-2 days. Return to the emergency department for any new, worsening, or concerning symptoms. Is patient prescribed a controlled substance at d/c from ED?: No Referrals: Emily Ferrari MD [REFERRING] - 1-2 days Mike Mcfarland MD [Medical Doctor] - 1-2 days Pradeep Taobr MD [STAFF PHYSICIAN] - 1-2 days Time of Disposition: 22:23
--- NOTE | 2019-12-21 22:17 | XR ---
EXAMINATION TYPE: XR tibia fibula RT DATE OF EXAM: 12/21/2019 COMPARISON: NONE HISTORY: Leg numbness TECHNIQUE: 2 views FINDINGS: Tibia and fibula appear intact. I see no fracture nor dislocation. IMPRESSION: Negative right tibia and fibula exam.
--- NOTE | 2019-12-21 22:18 | XR ---
EXAMINATION TYPE: XR knee complete RT DATE OF EXAM: 12/21/2019 COMPARISON: NONE HISTORY: Leg pain TECHNIQUE: 3 views FINDINGS: Knee joint spaces are normal. I see no fracture nor dislocation. There is no sign of joint effusion. IMPRESSION: Negative right knee exam.
[2019-12-21 22:38] VITALS: BP 103/69; PULSE 84; RESP 18; TEMP 97.9
== END 2019-12-21 22:38 | disposition home or self-care (01) ==
LOC: EC 21:36
DX: R20.2 Paresthesia of skin (principal); F17.200 Nicotine dependence, unspecified, uncomplicated; Z88.7 Allergy status to serum and vaccine
CPT/HCPCS: 99283

== ENCOUNTER 2020-03-10 20:06 | Inpatient (IN) | payer MEDICAID, OTHER ==
--- NOTE | 2020-03-10 21:12 | ED ---
General Adult HPI - General Chief complaint: Psychiatric Symptoms Stated complaint: Mental Health Time Seen by Provider: 03/10/20 20:33 Source: patient, RN notes reviewed, old records reviewed Mode of arrival: ambulatory Limitations: no limitations - History of Present Illness Initial comments: 24-year-old female presenting for mental health evaluation. Increased depression, suicidal ideation. Patient is to illicit drugs. She denies suicide attempt. She has a previous history of self-harm. She states she has had worsening depression and suicidal thoughts over the past several weeks. She is seeking psychiatric evaluation. No physical complaints. - Related Data Home Medications Medication Instructions Recorded Confirmed No Known Home Medications 03/10/20 03/11/20 Allergies Allergy/AdvReac Type Severity Reaction Status Date / Time tuberculin, purified protein Allergy Rash/Hives Verified 03/10/20 21:24 deriva tuberculin,PPD,multi-puncture Allergy Rash/Hives Verified 03/10/20 21:24 Tetanus Vaccines and Toxoid AdvReac Swelling Verified 03/10/20 21:24 Review of Systems ROS Statement: Those systems with pertinent positive or pertinent negative responses have been documented in the HPI. ROS Other: All systems not noted in ROS Statement are negative. Past Medical History Past Medical History: No Reported History Additional Past Medical History / Comment(s): bacterial vaginosis, depression History of Any Multi-Drug Resistant Organisms: None Reported Past Surgical History: No Surgical Hx Reported Past Psychological History: Depression Smoking Status: Current every day smoker Past Alcohol Use History: None Reported Past Drug Use History: Heroin, Marijuana - Past Family History Family Family Medical History: No Reported History General Exam Limitations: no limitations General appearance: alert, in no apparent distress Head exam: Present: atraumatic, normocephalic Eye exam: Present: normal appearance, PERRL ENT exam: Present: normal exam Neck exam: Present: normal inspection. Absent: tenderness, meningismus Respiratory exam: Present: normal lung sounds bilaterally. Absent: respiratory distress Cardiovascular Exam: Present: normal rhythm, tachycardia GI/Abdominal exam: Present: soft. Absent: distended, tenderness, guarding Extremities exam: Present: normal inspection, normal capillary refill. Absent: pedal edema Neurological exam: Present: alert, oriented X3 Psychiatric exam: Present: depressed, anxious, suicidal ideation Skin exam: Present: warm, dry, intact. Absent: cyanosis, diaphoretic Course Vital Signs 03/10/20 20:07 Temperature 98.6 F Pulse Rate 137 H Respiratory 19 Rate Blood Pressure 131/84 O2 Sat by Pulse 97 Oximetry - Reevaluation(s) Reevaluation #1: 03/10/20 21:11 Patient medically cleared awaiting EPS evaluation Reevaluation #2: 03/10/20 2[address] Case signed out to Dr. Humphrey, awaiting EPS evaluation and disposition. Medical Decision Making - Lab Data Result diagrams: 03/11/20 09:52 03/11/20 09:52 Lab Results 03/10/20 03/10/20 03/10/20 Range/Units 21:07 21:07 21:07 Urine Color Yellow Urine Appearance Cloudy H (Clear) Urine pH 6.0 (5.0-8.0) Ur Specific [place] 1.028 (1.001-1.035) Urine Protein 1+ H (Negative) Urine Glucose (UA) Negative (Negative) Urine Ketones 1+ H (Negative) Urine Blood Negative (Negative) Urine Nitrite Negative (Negative) Urine Bilirubin Negative (Negative) Urine Urobilinogen <2.0 (<2.0) mg/dL Ur Leukocyte Esterase Negative (Negative) Urine RBC 10 H (0-5) /hpf Urine WBC 4 (0-5) /hpf Ur Squamous Epith Cells <1 (0-4) /hpf Urine Bacteria Occasional H (None) /hpf Urine Mucus Many H (None) /hpf Urine HCG, Qual Not Detected (Not Detectd) Urine Opiates Screen Detected H (NotDetected) Ur Oxycodone Screen Not Detected (NotDetected) Urine Methadone Screen Not Detected (NotDetected) Ur Propoxyphene Screen Not Detected (NotDetected) Ur Barbiturates Screen Not Detected (NotDetected) U Tricyclic Antidepress Not Detected (NotDetected) Ur Phencyclidine Scrn Not Detected (NotDetected) Ur Amphetamines Screen Not Detected (NotDetected) U Methamphetamines Scrn Detected H (NotDetected) U Benzodiazepines Scrn Not Detected (NotDetected) Urine Cocaine Screen Detected H (NotDetected) U Marijuana (THC) Screen Detected H (NotDetected) Disposition Clinical Impression: Depression, Suicidal ideation Disposition: [facility] Condition: Stable Is patient prescribed a controlled substance at d/c from ED?: No
[2020-03-10 21:35] LABS: Amphetamine Screen,Urine Not Detected (NotDetected); Barbiturate Screen,Urine Not Detected (NotDetected); Benzodiazepines Screen,Urine Not Detected (NotDetected); Cocaine Screen,Urine Detected (NotDetected); Methadone Screen, Urine Not Detected (NotDetected); Opiate Screen,Urine Detected (NotDetected); Oxycodone Screen, Urine Not Detected (NotDetected); Phencyclidine Screen,Urine Not Detected (NotDetected); Tricyclic Antidepressant,Urine Not Detected (NotDetected); Urn Cannabinoid Scrn Detected (NotDetected)
[2020-03-11] MEDS ORDERED: MAGNESIUM HYDROXIDE 2,400 MG/10 ML CUP PO PRN (02:47)
[2020-03-11] MEDS ORDERED: MAG HYDROX/AL HYDROX/SIMETH 30 ML CUP PO PRN (02:47)
[2020-03-11] MEDS ORDERED: ACETAMINOPHEN TAB 325 MG TAB PO PRN (02:47)
[2020-03-11] MEDS ORDERED: LORazepam 2 MG/ML INJ IV PRN (02:51)
[2020-03-11] MEDS ORDERED: HALOPERIDOL LACTATE 5 MG/ML 1 ML VIAL IM PRN (02:52)
[2020-03-11 03:46] LABS: Appearance,Urine Cloudy (Clear); Bacteria,Urine Occasional /hpf; Bilirubin,Urine Negative (Negative); Blood,Urine Negative (Negative); Color,Urine Yellow; Glucose,Urine (UA) Negative (Negative); Ketones,Urine 1+ (Negative); Leukocyte Esterase,Urine Negative (Negative); Mucus,Urine Many /hpf; Nitrite,Urine Negative (Negative); Protein,Urine 1+ (Negative); RBC,Urine 10 /hpf (0-5); Specific Gravity,Urine 1.028 (1.001-1.035); Squamous Epithelial Cell,Urine <1 /hpf (0-4); Urobilinogen,Urine <2.0 mg/dL (<2.0); WBC,Urine 4 /hpf (0-5)
[2020-03-11] MEDS: LORazepam 1 MG TAB PO PRN ×3 (05:00→20:16)
[2020-03-11] MEDS: NICOTINE 14MG/24HR PATCH TRANSDERM SCH ×2 (08:48→08:49)
[2020-03-11 10:21] LABS: Basophils # (A) 0.1 k/uL (0-0.2); Basophils % (A) 1 %; Eosinophils # (A) 0.1 k/uL (0-0.7); Eosinophils % (A) 2 %; HCT 40.6 % (34.0-46.0); Lymphocytes # (A) 2.1 k/uL (1.0-4.8); Lymphocytes % (A) 26 %; MCH 30.2 pg (25.0-35.0); MCHC 34.4 g/dL (31.0-37.0); MCV 87.9 fL (80.0-100.0); Mean Platelet Volume 7.2; Monocytes # (A) 0.4 k/uL (0-1.0); Monocytes % (A) 5 %; Neutrophils # (A) 5.3 k/uL (1.3-7.7); Neutrophils % (A) 65 %; Platelet Count 298 k/uL (150-450); RBC 4.62 m/uL (3.80-5.40); RDW 12.5 % (11.5-15.5); WBC 8.2 k/uL (3.8-10.6)
[2020-03-11 10:29] LABS: ALT 15 U/L (4-34); AST 22 U/L (14-36); African American GFR (CKD) >90 (>60 ml/min/1.73 sqM); Albumin 4.6 g/dL (3.5-5.0); Alkaline Phosphatase 56 U/L (38-126); Anion Gap 8 mmol/L; Bilirubin, Delta 0.1 mg/dL (0.0-0.2); Bilirubin,Unconjugated 0.6 mg/dL (0.0-1.1); Blood Urea Nitrogen 14 mg/dL (7-17); Calcium 9.4 mg/dL (8.4-10.2); Carbon Dioxide 27 mmol/L (22-30); Chloride 104 mmol/L (98-107); Cholesterol 151 mg/dL (<200); Glucose 96 mg/dL (74-99); HDL Cholesterol 45 mg/dL (40-60); LDL Cholesterol,Calculated 95 mg/dL (0-99); Non-African American GFR(CKD) >90 (>60 ml/min/1.73 sqM); Sodium 139 mmol/L (137-145); Total Bilirubin 0.7 mg/dL (0.2-1.3); Total Protein 7.9 g/dL (6.3-8.2); Triglycerides 55 mg/dL (<150)
[2020-03-11] MEDS ORDERED: cloNIDine HCL 0.1 MG TAB PO PRN (11:14)
--- NOTE | 2020-03-11 11:26 | P.HP ---
Psychiatric H&P - . H&P Date: 03/11/20 History & Physical: Allergies Allergy/AdvReac Type Severity Reaction Status Date / Time tuberculin, purified protein Allergy Rash/Hives Verified 03/10/20 21:24 deriva tuberculin,PPD,multi-puncture Allergy Rash/Hives Verified 03/10/20 21:24 Tetanus Vaccines and Toxoid AdvReac Swelling Verified 03/10/20 21:24 Vital Signs Temp 98.4 F 03/11/20 04:34 Pulse 78 03/11/20 04:34 Resp 15 03/11/20 04:34 BP 104/62 03/11/20 04:34 Pulse Ox 99 03/11/20 04:34 Intake & Output 03/10/20 03/11/20 03/11/20 18:59 06:59 18:59 Weight 48.7 kg Laboratory Last Values WBC 8.2 k/uL (3.8-10.6) 03/11/20 09:52 RBC 4.62 m/uL (3.80-5.40) 03/11/20 09:52 Hgb 14.0 gm/dL (11.4-16.0) 03/11/20 09:52 Hct 40.6 % (34.0-46.0) 03/11/20 09:52 MCV 87.9 fL (80.0-100.0) 03/11/20 09:52 MCH 30.2 pg (25.0-35.0) 03/11/20 09:52 MCHC 34.4 g/dL (31.0-37.0) 03/11/20 09:52 RDW 12.5 % (11.5-15.5) 03/11/20 09:52 Plt Count 298 k/uL (150-450) 03/11/20 09:52 MPV 7.2 03/11/20 09:52 Neutrophils % 65 % 03/11/20 09:52 Lymphocytes % 26 % 03/11/20 09:52 Monocytes % 5 % 03/11/20 09:52 Eosinophils % 2 % 03/11/20 09:52 Basophils % 1 % 03/11/20 09:52 Neutrophils # 5.3 k/uL (1.3-7.7) 03/11/20 09:52 Lymphocytes # 2.1 k/uL (1.0-4.8) 03/11/20 09:52 Monocytes # 0.4 k/uL (0-1.0) 03/11/20 09:52 Eosinophils # 0.1 k/uL (0-0.7) 03/11/20 09:52 Basophils # 0.1 k/uL (0-0.2) 03/11/20 09:52 Sodium 139 mmol/L (137-145) 03/11/20 09:52 Potassium 4.0 mmol/L (3.5-5.1) 03/11/20 09:52 Chloride 104 mmol/L (98-107) 03/11/20 09:52 Carbon Dioxide 27 mmol/L (22-30) 03/11/20 09:52 Anion Gap 8 mmol/L 03/11/20 09:52 BUN 14 mg/dL (7-17) 03/11/20 09:52 Creatinine 0.66 mg/dL (0.52-1.04) 03/11/20 09:52 Est GFR (CKD-EPI)AfAm >90 (>60 ml/min/1.73 sqM) 03/11/20 09:52 Est GFR (CKD-EPI)NonAf >90 (>60 ml/min/1.73 sqM) 03/11/20 09:52 Glucose 96 mg/dL (74-99) 03/11/20 09:52 Calcium 9.4 mg/dL (8.4-10.2) 03/11/20 09:52 Total Bilirubin 0.7 mg/dL (0.2-1.3) 03/11/20 09:52 Conjugated Bilirubin 0.0 mg/dL (0.0-0.3) 03/11/20 09:52 Unconjugated Bilirubin 0.6 mg/dL (0.0-1.1) 03/11/20 09:52 Delta Bilirubin 0.1 mg/dL (0.0-0.2) 03/11/20 09:52 AST 22 U/L (14-36) 03/11/20 09:52 ALT 15 U/L (4-34) 03/11/20 09:52 Alkaline Phosphatase 56 U/L (38-126) 03/11/20 09:52 Total Protein 7.9 g/dL (6.3-8.2) 03/11/20 09:52 Albumin 4.6 g/dL (3.5-5.0) 03/11/20 09:52 Triglycerides 55 mg/dL (<150) 03/11/20 09:52 Cholesterol 151 mg/dL (<200) 03/11/20 09:52 LDL Cholesterol, Calc 95 mg/dL (0-99) 03/11/20 09:52 HDL Cholesterol 45 mg/dL (40-60) 03/11/20 09:52 Urine Color Yellow 03/10/20 21:07 Urine Appearance Cloudy (Clear) H 03/10/20 21:07 Urine pH 6.0 (5.0-8.0) 03/10/20 21:07 Ur Specific [place] 1.028 (1.001-1.035) 03/10/20 21:07 Urine Protein 1+ (Negative) H 03/10/20 21:07 Urine Glucose (UA) Negative (Negative) 03/10/20 21:07 Urine Ketones 1+ (Negative) H 03/10/20 21:07 Urine Blood Negative (Negative) 03/10/20 21:07 Urine Nitrite Negative (Negative) 03/10/20 21:07 Urine Bilirubin Negative (Negative) 03/10/20 21:07 Urine Urobilinogen <2.0 mg/dL (<2.0) 03/10/20 21:07 Ur Leukocyte Esterase Negative (Negative) 03/10/20 21:07 Urine RBC 10 /hpf (0-5) H 03/10/20 21:07 Urine WBC 4 /hpf (0-5) 03/10/20 21:07 Ur Squamous Epith Cells <1 /hpf (0-4) 03/10/20 21:07 Urine Bacteria Occasional /hpf (None) H 03/10/20 21:07 Urine Mucus Many /hpf (None) H 03/10/20 21:07 Urine HCG, Qual Not Detected (Not Detectd) 03/10/20 21:07 Urine Opiates Screen Detected (NotDetected) H 03/10/20 21:07 Ur Oxycodone Screen Not Detected (NotDetected) 03/10/20 21:07 Urine Methadone Screen Not Detected (NotDetected) 03/10/20 21:07 Ur Propoxyphene Screen Not Detected (NotDetected) 03/10/20 21:07 Ur Barbiturates Screen Not Detected (NotDetected) 03/10/20 21:07 U Tricyclic Antidepress Not Detected (NotDetected) 03/10/20 21:07 Ur Phencyclidine Scrn Not Detected (NotDetected) 03/10/20 21:07 Ur Amphetamines Screen Not Detected (NotDetected) 03/10/20 21:07 U Methamphetamines Scrn Detected (NotDetected) H 03/10/20 21:07 U Benzodiazepines Scrn Not Detected (NotDetected) 03/10/20 21:07 Urine Cocaine Screen Detected (NotDetected) H 03/10/20 21:07 U Marijuana (THC) Screen Detected (NotDetected) H 03/10/20 21:07 Coronavirus (PCR) Not Detected (Not Detectd) 03/11/20 03:05 03/11/20 11:17 IDENTIFYING DATA: Patient is a 24-year-old female with a chronic history of polysubstance abuse who currently lives with her mother in a house is single has no kids and is unemployed. HPI: Patient presented to the hospital yesterday with complaints of depression and suicidal thoughts and complains of increase in her drug use recently. She states that this is when gone on for the past several weeks. Patient was asuncionn oleg discharged from the mental health unit in December 2019 where she had a brief hospital stay and at that time was started on Lamictal and refused inpatient rehab. Patient had a UDS positive for opiates methamphetamine and cocaine and marijuana. She claims that she has been struggling with her substance use and also believes that she has bipolar disorder. She claims that she was diagnosed with bipolar at the age of 16 however has not taking medications and has not taken it seriously. She states that she has been struggling with her substance abuse issues as well and has tried rehab in s everal different programs several times and has failed as she "having gotten my mental health under control". She states that she has been dealing mainly with depression ongoing however described vague manic episodes in the past where she would be up all night for days on end however did claim that she was using drugs at that time. She states that her current mood is depressed and requested to be on a mood stabilizer. She states that she is also dealing with anxiety and is scared of going into withdrawals from opiates. She states that she was able sleep better last night however for the past several days she has been awake.Patient denies any current suicidal or homicidal ideations intent or plan. At this time patient denies any auditory or visual hallucinations. Patient denies any flight of ideas racing thoughts and increased in goal directed behavior. Patient admits to using heroin approximately 1-2 g snorting every day. She states that she is also been using marijuana occasionally and cocaine occasionally. She states that she is a cigarettes daily. She denies any alcohol use or any other drug use. PAST PSYCHIATRIC HISTORY: Patient states that she has a history of polysubstance abuse along with bipolar disorder. Patient was previously on Lamictal however claims that she did not take it when she left the hospital. She was last admitted to the mental health unit in December 2019. Patient denies any psychiatric outpatient follow-up. Patient denies any history of suicide attempts in the past. PMH:denies ALLERGIES: as per EMR CHEMICAL DEPENDENCY HISTORY: as per HPI FAMILY PSYCHIATRIC/SUBSTANCE USE HISTORY: She states that her father was an alcoholic and states that her aunt overdosed on heroin. SOCIAL HISTORY: Patient was born and raised in [place] [facility] and claims that she completed high school. 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 She states that she lives in a house with her mother has no kids and is unemployed. She claims that she went to [facility] 3 years ago for assault and battery charges. MENTAL STATUS EXAM: General Appearance: Patient appears to be short in stature, stated age is alert, directable, and attempts to cooperate. Patient appears to have poor hygiene and grooming. Behavior: Patient is seated without any agitated behavior. Speech: Patient's speech is fluent and nonpressured. Mood/Affect: Patient reports their mood is depressed and anxious, affect is congruent and constricted. Suicidality/Homicidality: Patient denies having any homicidal ideation intent or plan. Denies any suicidal ideations intent or plan Perceptions: Patient denies any visual hallucinations and denies any auditory hallucinations Though content/process: Patient was fixated on her symptoms. She was goal oriented and logical. Eyes any paranoia does not endorse any delusions. Memory and concentration: AOX3, grossly intact for the purposes of this session. Can spell "WORLD" backwards Judgment and insight: poor STRENGTHS/WEAKNESSES: strength is that patient is resilient. Weakness is that patient has poor judgment and is impulsive INTELLECT: average IMPRESSIONS: Bipolar disorder, currently depressed Anxiety disorder unspecified Opioid dependence Cocaine abuse Cannabis abuse Nicotine dependence PLAN: -Patient is admitted under voluntary status to MHU for stabilization of psychiatric symptoms and safety. Patient has signed adult voluntary form and medication consent and is placed in patient's chart. -Medications : Will start patient on Seroquel 25 mg daily at bedtime for mood stabilization/insomnia. Patient will also be started on Zoloft 50 mg daily for mood/anxiety -Ativan and Haldol PRN for agitation/aggression -Patient was counselled on substance abuse and desired to cut back on use -Patient was informed of the risks, benefits and side effects of the medication and patient verbally consented to taking the medications. Patient signed med c onsent form and was placed in chart. -Internal Medicine consult to perform medical evaluation and physical. -NRT - nicotine patch -SW on board for discharge planning. Encourage patient to participate in groups to work on coping skills. Discussed with patient the option for rehab and patient declined at this time however states that she does want to think about it.
[2020-03-11] MEDS: SERTRALINE 50 MG TAB PO SCH (11:46)
[2020-03-11] MEDS: QUEtiapine 25 MG TAB PO SCH (20:15)
--- NOTE | 2020-03-11 21:57 | P.CONS ---
History of Present Illness - Reason for Consult Consult date: 03/11/20 - History of Present Illness The patient is a 24-year-old female with a PMH of bipolar disorder, and polysubstance abuse who presented to the emergency room with depression and suicidal ideation. The patient reports that she is tired of her substance abuse and her quality of life and that she wishes to get clean. She noted that her last use of heroin and crack were a few days prior to presentation. She denied any active complaints. She denied chest pain, shortness of fever, chills, nausea, vomiting. She also denied cough, abdominal pain, or diarrhea. The patient underwent an extensive laboratory evaluation in the emergency room which was all reviewed. Review of Systems Pertinent positives and negatives as discussed in HPI, a complete review of systems was performed and all other systems are negative. Past Medical History Past Medical History: No Reported History Additional Past Medical History / Comment(s): bacterial vaginosis, depression History of Any Multi-Drug Resistant Organisms: None Reported Past Surgical History: No Surgical Hx Reported Past Psychological History: Depression Smoking Status: Current every day smoker Past Alcohol Use History: None Reported Past Drug Use History: Cocaine, Heroin, Marijuana, Methamphetamine, Opiates - Past Family History Family Family Medical History: No Reported History Medications and Allergies Home Medications Medication Instructions Recorded Confirmed Type No Known Home Medications 03/10/20 03/11/20 History Allergies Allergy/AdvReac Type Severity Reaction Status Date / Time tuberculin, purified protein Allergy Rash/Hives Verified 03/10/20 21:24 deriva tuberculin,PPD,multi-puncture Allergy Rash/Hives Verified 03/10/20 21:24 Tetanus Vaccines and Toxoid AdvReac Swelling Verified 03/10/20 21:24 Physical Exam Vitals: Vital Signs Temp Pulse Resp BP Pulse Ox 03/11/20 18:03 97.8 F 03/11/20 13:01 98.4 F 03/11/20 04:34 98.4 F 78 15 104/62 99 Intake and Output 03/11/20 03/11/20 03/11/20 06:59 14:59 22:59 Other: Weight 48.7 kg General: non toxic, no distress, appears at stated age, normal weight Derm: no unusual rashes/lesions no unusual ecchymoses, warm, dry Head: atraumatic, normocephalic, symmetric Eyes: EOMI, no lid lag, anicteric sclera, pupils equal round reactive to light ENT: Nose and ears atraumatic, no thrush, no pharyngeal erythema Neck: No thyromegaly, no cervical lymphadenopathy, trachea midline, supple Mouth: no lip lesion, mucus membranes moist Cardiovascular: S1S2 reg, no murmur, positive posterior tibial pulse bilateral, no edema, capillary refill less than 2 seconds Lungs: CTA bilateral, no rhonchi, no rales , no accessory muscle use Abdominal: soft, nontender to palpation, no guarding, no appreciable organomegaly, normal bowel sounds Ext: no gross muscle atrophy, muscle strength 5 out of 5 in all 4 extremities grossly, no contractures, Neuro: CN II-XI grossly intact, light touch intact all 4 extremities, finger to nose within normal limits, Psych: Alert, oriented, appropriate affect Results CBC & Chem 7: 03/11/20 09:52 03/11/20 09:52 Labs: Abnormal Lab Results - Last 24 Hours (Table) 03/10/20 Range/Units 21:07 Urine Appearance Cloudy H (Clear) Urine Protein 1+ H (Negative) Urine Ketones 1+ H (Negative) Urine RBC 10 H (0-5) /hpf Urine Bacteria Occasional H (None) /hpf Urine Mucus Many H (None) /hpf Assessment and Plan Plan: Polysubstance abuse -Advised on the importance of cessation Depression with suicidal ideation -As per psychiatry Thank you for allowing us to participate in the care of this patient. We will follow peripherally. Do not hesitate to contact us with questions. Someone can be reached from the [facility] hospitalist group at all hours of the day at [phone].
[2020-03-12] MEDS: NICOTINE 14MG/24HR PATCH TRANSDERM SCH (08:15)
[2020-03-12] MEDS: SERTRALINE 50 MG TAB PO SCH (08:16)
[2020-03-12] MEDS: LORazepam 1 MG TAB PO PRN ×3 (08:17→20:20)
--- NOTE | 2020-03-12 10:34 | P.PN ---
Progress Note - Text Progress Note Date: 03/12/20 Interval History: Patient was seen wandering the hallways and was directable and agreeable to zoya flores with brief writer in the office. Patient appears to have a mildly brighter affect today. She was more cooperative later today and appropriate. She states that she feels "a little bit better" compared to yesterday. She states that her mood is "somewhere in the middle". She claims that she "always struggles with anxiety". She states that she hasn't taken the medications and denies any side effects at this point. She states that she was able to sleep throughout the night on the Seroquel and wants to remain at the same dose. He continues to speak about wanting to quit using substances. At this time patient denies any suicidal or homical ideations, intent or plan. Patient denies any auditory, visual hallucinations and denies any paranoia or delusions. Patient denies any side effects from the medications and has been compliant with meds. Mental Status Exam: General Appearance: Patient appears to be short in stature, stated age is alert, directable, and cooperative. Mildly improving hygiene and grooming. Behavior: Patient is calmly seated without any agitated behavior. More appropriate today. Speech: Patient's speech is fluent and nonpressured. Mood/Affect: Mood is "somewhere in the middle", affect is congruent and constricted. Suicidality/Homicidality: Patient denies having any suicidal or homicidal ideation intent or plan. Perceptions: Patient denies any visual hallucinations and denies any auditory hallucinations Though content/process: There is no evidence of any delusional thought content and thought process is linear and goal-directed. Memory and concentration: AOX3, grossly intact for the purposes of this session Judgment and insight: Improving mildly Assessment Bipolar disorder, currently depressed Anxiety disorder unspecified Opioid dependence Cocaine abuse Cannabis abuse Nicotine dependence Plan: -Patient continues to meet criteria for inpatient psychiatric admission for symptom stabilization and safety. Patient has signed adult voluntary form and medication consent and was placed in patient's chart. -Medications: Continue with Seroquel 25 mg daily at bedtime for mood stabilization/insomnia. Continue Zoloft 50 mg daily for mood/anxiety, consider titrating this med up tomorrow. -When necessary Ativan and Haldol for agitation/aggression. -NRT - nicotine patch -SW on board for discharge planning. Encouraged the patient to participate in milieu. Continue to speak with patient about the different options for substance use rehab versus outpatient treatment programs. Likely discharge her early next week.
[2020-03-12] MEDS: QUEtiapine 25 MG TAB PO SCH (20:18)
[2020-03-13] MEDS: LORazepam 1 MG TAB PO PRN ×3 (06:24→21:29)
[2020-03-13] MEDS: SERTRALINE 50 MG TAB PO SCH (08:37)
[2020-03-13] MEDS: NICOTINE 14MG/24HR PATCH TRANSDERM SCH (09:00)
[2020-03-13 09:40] VITALS: RESP 16
--- NOTE | 2020-03-13 11:31 | P.PN ---
Progress Note - Text Progress Note Date: 03/13/20 Interval History: Patient was seen wandering the hallways and was directable and agreeable to sp sarak with information writer in the office. Patient today claims that she is doing better in terms of her mood and anxiety. She spoke with the nurses yesterday about possibly signing out AMA as she wants to go back home. Today she was cooperative with information writer however was focused on discharge and asked to be discharged today. She states that her mood has been "a bit better" and denies any current depression at this time. She claims that she has been taking her medications and she was able to sleep throughout the night last night. She claims that she wants to remain on the same dose of medications at this time. He continues to speak about wanting to quit using substances however today was fairly more superficial and once again declined wanting to go to rehab and states that she wants to go to her NA meetings instead. At this time patient denies any suicidal or homical ideations, intent or plan. Patient denies any auditory, visual hallucinations and denies any paranoia or delusions. Patient denies any side effects from the medications and has been compliant with meds. Mental Status Exam: General Appearance: Patient appears to be short in stature, stated age is alert, directable, and cooperative however more superficial today. Mildly improving hygiene and grooming. Behavior: Patient is calmly seated without any agitated behavior. More superficial today. Speech: Patient's speech is fluent and nonpressured. Mood/Affect: Mood is "a bit better", affect is congruent and constricted. Suicidality/Homicidality: Patient denies having any suicidal or homicidal ideation intent or plan. Perceptions: Patient denies any visual hallucinations and denies any auditory hallucinations Though content/process: There is no evidence of any delusional thought content and thought process is linear and goal-directed. Focused on discharge. Memory and concentration: AOX3, grossly intact for the purposes of this session Judgment and insight: Superficial, Improving mildly Assessment Bipolar disorder, currently depressed Anxiety disorder unspecified Opioid dependence Cocaine abuse Cannabis abuse Nicotine dependence Plan: -Patient continues to meet criteria for inpatient psychiatric admission for symptom stabilization and safety. Patient has signed adult voluntary form and medication consent and was placed in patient's chart. -Medications: Continue with Seroquel 25 mg daily at bedtime for mood stabilization/insomnia. Continue Zoloft 50 mg daily for mood/anxiety. -When necessary Ativan and Haldol for agitation/aggression. -NRT - nicotine patch -SW on board for discharge planning. Encouraged the patient to participate in milieu. Once again offered patient to go to rehab however she claims that she would rather go to NA meetings in the community and do outpatient. Likely discharge tomorrow.
[2020-03-13] MEDS: QUEtiapine 25 MG TAB PO SCH (21:29)
[2020-03-14 06:52] VITALS: BP 112/80; PULSE 72; TEMP 99
[2020-03-14] MEDS: NICOTINE 14MG/24HR PATCH TRANSDERM SCH (08:12)
[2020-03-14] MEDS: SERTRALINE 50 MG TAB PO SCH (08:12)
[2020-03-14] MEDS: LORazepam 1 MG TAB PO PRN (08:13)
[2020-03-14] MEDS ORDERED: SERTRALINE 50 MG TAB PO STA (09:09)
--- NOTE | 2020-03-14 09:47 | P.DS ---
Providers Date of admission: 03/11/20 01:46 Expected date of discharge: 03/14/20 Attending physician: Ritesh Callaway MD Consults: 03/11/20 02:47 Consult Physician Routine Consulting Provider: Sasha Wild Consult Reason/Comments: For H & P for Medical Follow Up Do you want consulting provider notified?: Yes Primary care physician: Stated None - Discharge Diagnosis(es) (1) Bipolar disorder current episode depressed Current Visit: Yes Status: Acute Priority: High (2) Anxiety disorder Current Visit: Yes Status: Acute Priority: Medium (3) Opioid dependence Current Visit: Yes Status: Acute Priority: Medium (4) Cocaine abuse Current Visit: Yes Status: Acute Priority: Medium (5) Cannabis abuse Current Visit: Yes Status: Acute Priority: Medium (6) Nicotine dependence Current Visit: Yes Status: Acute Priority: Low Hospital Course: Admission HPI: Admission note was completed by technical proposal writer " Patient is a 24-year-old female with a chronic history of polysubstance abuse who currently lives with her mother in a house is single has no kids and is unemployed. Patient presented to the hospital yesterday with complaints of depression and suicidal thoughts and complains of increase in her drug use recently. She states that this is when gone on for the past several weeks. Patient was recently discharged from the mental health unit in December 2019 where she had a brief hospital stay and at that time was started on Lamictal and refused inpatient rehab. Patient had a UDS positive for opiates methamphetamine and cocaine and marijuana. She claims that she has been struggling with her substance use and also believes that she has bipolar disorder. She claims that she was diagnosed with bipolar at the age of 16 however has not taking medications and has not taken it seriously. She states that she has been struggling with her substance abuse issues as well and has tried rehab in several different programs several times and has failed as she "having gotten my mental health under control". She states that she has been dealing mainly with depression ongoing however described vague manic episodes in the past where she would be up all night for days on end however did claim that she was using drugs at that time. She states that her current mood is depressed and requested to be on a mood stabilizer. She states that she is also dealing with anxiety and is scared of going into withdrawals from opiates. She states that she was able sleep better last night however for the past several days she has been awake.Patient denies any current suicidal or homicidal ideations intent or plan. At this time patient denies any auditory or visual hallucinations. Patient denies any flight of ideas racing thoughts and increased in goal directed behavior. Patient admits to using heroin approximately 1-2 g snorting every day. She states that she is also been using marijuana occasionally and cocaine occasionally. She states that she is a cigarettes daily. She denies any alcohol use or any other drug use." Hospital course: Upon admission to the unit patient was initially depressed and anxious. Patient was however directable and agreeable to commence treatment and signed adult voluntary form. Patient got along well with other patients on the unit and followed unit protocol. Patient was compliant with the medications and denied any side effects throughout hospital course. Patient was started on Seroquel 25 mg nightly for mood stabilization/insomnia. Patient was also started on Zoloft and titrate up the dose of 100 mg daily for mood/anxiety. Patient spoke of her stressors and engaged in therapy both group and individual. Patient was also seen by medical team for history and physical exam. Throughout the course of the hospitalization patient gradually improved with regards to mood, anxiety, sleep and became more future oriented with improvement in her insight and judgment. On the day of discharge patient denied any suicidal or homicidal id eations intent or plan denied any auditory or visual hallucinations. Patient endorsed wanting to live for her sobriety and her future. The patient denied any access to guns or weapons. Patient denied any paranoia and did not endorse any delusions. Patient does have a significant history of substance abuse and was counseled on abstaining from all substances including alcohol and marijuana. Patient was offered however declined inpatient substance-abuse rehab. Patient elected to do outpatient substance use treatment program through [facility] and also wanted to get started back into NA/AA meetings in the community. Patient was also counseled on the medications and need for regular compliance and was encouraged to follow-up with their outpatient appointment for mental health and also for primary care. Prior to discharge a family meeting will be arranged by social services to answer any questions and ensure safety upon discharge. Mental status exam: General Appearance: Patient appears to be short in stature, stated age is alert, directable, and cooperative. Patient is in no acute distress and has improved hygiene and grooming Behavior: Patient is calmly seated without any agitated behavior. Speech: Patient's speech is fluent and nonpressured. Mood/Affect: Patient reports their mood is "good", affect is congruent and constricted Suicidality/Homicidality: Patient denies having any suicidal or homicidal ideation intent or plan. Perceptions: Patient denies any auditory or visual hallucinations. Though content/process: There is no evidence of any delusional thought content and thought process is linear and goal-directed. Memory and concentration: AOX3, grossly intact for the purposes of this session. Can spell "WORLD" backwards correctly. Judgment and insight: chronically poor/superficial, however has improved with guarded prognosis Impression: Bipolar disorder, currently depressed Anxiety disorder unspecified Opioid dependence Cocaine abuse Cannabis abuse Nicotine dependence Plan: -Continue with discharge today as patient has improved and stabilized psychiatrically and is not currently an imminent threat to herself and/or others. Patient will remain at chronically elevated risk for harm to self and/or others due to her impulsivity and polysubstance abuse. -Continue medications: Continue Seroquel 25 mg daily at bedtime for mood stabilization/insomnia, Zoloft 100 mg daily for mood/anxiety. -Patient was counseled on the need for medication compliance and appropriate follow-up at mental health and also primary care for medical issues. Patient verbalized understanding and agreed. -Social work to arrange for and conduct family meeting to ensure safety upon discharge and answer any questions/concerns. Social work also to arrange for patients follow up appointments with [facility] for psychiatric care along with follow up with primary care provider. -Patient counseled on abstaining from recreational drugs and marijuana and alcohol. Was informed/educated on the adverse effects on their physical and mental health. Patient verbally agreed and understood. Patient was offered substance abuse treatment however declined at this time and wanted to do outpatient substance use treatment and rejoin NA/AA meetings in the community. -Patient was instructed to return to the hospital or seek immediate medical care if their psychiatric or medical symptoms do worsen or reoccur. Allergies Allergy/AdvReac Type Severity Reaction Status Date / Time tuberculin, purified protein Allergy Rash/Hives Verified 03/10/20 21:24 deriva tuberculin,PPD,multi-puncture Allergy Rash/Hives Verified 03/10/20 21:24 Tetanus Vaccines and Toxoid AdvReac Swelling Verified 03/10/20 21:24 Laboratory Results WBC 8.2 k/uL (3.8-10.6) 03/11/20 09:52 RBC 4.62 m/uL (3.80-5.40) 03/11/20 09:52 Hgb 14.0 gm/dL (11.4-16.0) 03/11/20 09:52 Hct 40.6 % (34.0-46.0) 03/11/20 09:52 MCV 87.9 fL (80.0-100.0) 03/11/20 09:52 MCH 30.2 pg (25.0-35.0) 03/11/20 09:52 MCHC 34.4 g/dL (31.0-37.0) 03/11/20 09:52 RDW 12.5 % (11.5-15.5) 03/11/20 09:52 Plt Count 298 k/uL (150-450) 03/11/20 09:52 MPV 7.2 03/11/20 09:52 Neutrophils % 65 % 03/11/20 09:52 Lymphocytes % 26 % 03/11/20 09:52 Monocytes % 5 % 03/11/20 09:52 Eosinophils % 2 % 03/11/20 09:52 Basophils % 1 % 03/11/20 09:52 Neutrophils # 5.3 k/uL (1.3-7.7) 03/11/20 09:52 Lymphocytes # 2.1 k/uL (1.0-4.8) 03/11/20 09:52 Monocytes # 0.4 k/uL (0-1.0) 03/11/20 09:52 Eosinophils # 0.1 k/uL (0-0.7) 03/11/20 09:52 Basophils # 0.1 k/uL (0-0.2) 03/11/20 09:52 Sodium 139 mmol/L (137-145) 03/11/20 09:52 Potassium 4.0 mmol/L (3.5-5.1) 03/11/20 09:52 Chloride 104 mmol/L (98-107) 03/11/20 09:52 Carbon Dioxide 27 mmol/L (22-30) 03/11/20 09:52 Anion Gap 8 mmol/L 03/11/20 09:52 BUN 14 mg/dL (7-17) 03/11/20 09:52 Creatinine 0.66 mg/dL (0.52-1.04) 03/11/20 09:52 Est GFR (CKD-EPI)AfAm >90 (>60 ml/min/1.73 sqM) 03/11/20 09:52 Est GFR (CKD-EPI)NonAf >90 (>60 ml/min/1.73 sqM) 03/11/20 09:52 Glucose 96 mg/dL (74-99) 03/11/20 09:[address] Glu mg/dL 97 03/11/20 09:52 Hemoglobin A1c 5.0 % (4.0-6.0) 03/11/20 09:52 Calcium 9.4 mg/dL (8.4-10.2) 03/11/20 09:52 Total Bilirubin 0.7 mg/dL (0.2-1.3) 03/11/20 09:52 Conjugated Bilirubin 0.0 mg/dL (0.0-0.3) 03/11/20 09:52 Unconjugated Bilirubin 0.6 mg/dL (0.0-1.1) 03/11/20 09:52 Delta Bilirubin 0.1 mg/dL (0.0-0.2) 03/11/20 09:52 AST 22 U/L (14-36) 03/11/20 09:52 ALT 15 U/L (4-34) 03/11/20 09:52 Alkaline Phosphatase 56 U/L (38-126) 03/11/20 09:52 Total Protein 7.9 g/dL (6.3-8.2) 03/11/20 09:52 Albumin 4.6 g/dL (3.5-5.0) 03/11/20 09:52 Triglycerides 55 mg/dL (<150) 03/11/20 09:52 Cholesterol 151 mg/dL (<200) 03/11/20 09:52 LDL Cholesterol, Calc 95 mg/dL (0-99) 03/11/20 09:52 HDL Cholesterol 45 mg/dL (40-60) 03/11/20 09:52 TSH 1.250 mIU/L (0.465-4.680) 03/11/20 09:52 Urine Color Yellow 03/10/20 21:07 Urine Appearance Cloudy (Clear) H 03/10/20 21:07 Urine pH 6.0 (5.0-8.0) 03/10/20 21:07 Ur Specific [place] 1.028 (1.001-1.035) 03/10/20 21:07 Urine Protein 1+ (Negative) H 03/10/20 21:07 Urine Glucose (UA) Negative (Negative) 03/10/20 21:07 Urine Ketones 1+ (Negative) H 03/10/20 21:07 Urine Blood Negative (Negative) 03/10/20 21:07 Urine Nitrite Negative (Negative) 03/10/20 21:07 Urine Bilirubin Negative (Negative) 03/10/20 21:07 Urine Urobilinogen <2.0 mg/dL (<2.0) 03/10/20 21:07 Ur Leukocyte Esterase Negative (Negative) 03/10/20 21:07 Urine RBC 10 /hpf (0-5) H 03/10/20 21:07 Urine WBC 4 /hpf (0-5) 03/10/20 21:07 Ur Squamous Epith Cells <1 /hpf (0-4) 03/10/20 21:07 Urine Bacteria Occasional /hpf (None) H 03/10/20 21:07 Urine Mucus Many /hpf (None) H 03/10/20 21:07 Urine HCG, Qual Not Detected (Not Detectd) 03/10/20 21:07 Urine Opiates Screen Detected (NotDetected) H 03/10/20 21:07 Ur Oxycodone Screen Not Detected (NotDetected) 03/10/20 21:07 Urine Methadone Screen Not Detected (NotDetected) 03/10/20 21:07 Ur Propoxyphene Screen Not Detected (NotDetected) 03/10/20 21:07 Ur Barbiturates Screen Not Detected (NotDetected) 03/10/20 21:07 U Tricyclic Antidepress Not Detected (NotDetected) 03/10/20 21:07 Ur Phencyclidine Scrn Not Detected (NotDetected) 03/10/20 21:07 Ur Amphetamines Screen Not Detected (NotDetected) 03/10/20 21:07 U Methamphetamines Scrn Detected (NotDetected) H 03/10/20 21:07 U Benzodiazepines Scrn Not Detected (NotDetected) 03/10/20 21:07 Urine Cocaine Screen Detected (NotDetected) H 03/10/20 21:07 U Marijuana (THC) Screen Detected (NotDetected) H 03/10/20 21:07 Coronavirus (PCR) Not Detected (Not Detectd) 03/11/20 03:05 Vital Signs Temp 99 F 03/14/20 06:28 Pulse 72 03/14/20 06:28 Resp 16 03/14/20 06:28 BP 112/80 03/14/20 06:28 Pulse Ox 99 03/11/20 04:34 Intake & Output 03/13/20 03/14/20 03/14/20 18:59 06:59 18:59 Weight 47.6 kg Patient Condition at Discharge: Stable Plan - Discharge Summary New Discharge Prescriptions: New cloNIDine HCL [Catapres] 0.1 mg PO DAILY PRN 4 Days tab PRN Reason: opioid withdrawal Nicotine 14Mg/24Hr Patch [Habitrol] 1 patch TRANSDERM DAILY 14 Days patch QUEtiapine [SEROquel] 25 mg PO HS 30 Days tab Acetaminophen Tab [Tylenol] 650 mg PO Q4HR PRN tab PRN Reason: Pain/Discomfort Sertraline [Zoloft] 100 mg PO DAILY 30 Days tab Discharge Medication List Acetaminophen Tab [Tylenol] 650 mg PO Q4HR PRN tab 03/14/20 [Rx] Nicotine 14Mg/24Hr Patch [Habitrol] 1 patch TRANSDERM DAILY 14 Days patch 03/14/20 [Rx] QUEtiapine [SEROquel] 25 mg PO HS 30 Days tab 03/14/20 [Rx] Sertraline [Zoloft] 100 mg PO DAILY 30 Days tab 03/14/20 [Rx] cloNIDine HCL [Catapres] 0.1 mg PO DAILY PRN 4 Days tab 03/14/20 [Rx] Follow up Appointment(s)/Referral(s): [facility] [NON-STAFF] - 1 Week Patient Instructions/Handouts: How to Stop Smoking (DC), Depression (DC) Activity/Diet/Wound Care/Special Instructions: Activity and diet as tolerated. Avoid the use of street drugs and alcohol. Take all medications as prescribed. When you are in need of refills on your medications please contact your medical provider and/or outpatient psychiatrist to have this done. Please go to scheduled outpatient appointment for aftercare treatment. If symptoms return or become worse, call the crisis line at and/or go to the nearest emergency room for evaluation. Discharge Disposition: HOME SELF-CARE
[2020-03-15] MEDS ORDERED: SERTRALINE 100 MG TAB PO SCH (09:00)
== END 2020-03-14 11:23 | disposition home or self-care (01) | DRG 885 ==
LOC: EC 20:06 → 3MHU 03-11 01:46
PROVIDERS: ADMIT Psychiatry & Neurology Psychiatry; ATTEND Psychiatry & Neurology Psychiatry
DX: F31.30 Bipolar disorder, current episode depressed, mild or moderate severity, unspecified (principal); F11.20 Opioid dependence, uncomplicated; R45.851 Suicidal ideations; Z20.828 Contact with and (suspected) exposure to other viral communicable diseases; F14.10 Cocaine abuse, uncomplicated; F12.10 Cannabis abuse, uncomplicated; F17.210 Nicotine dependence, cigarettes, uncomplicated; F41.9 Anxiety disorder, unspecified; G47.00 Insomnia, unspecified; Z56.0 Unemployment, unspecified; Z91.5 Personal history of self-harm; Z88.7 Allergy status to serum and vaccine; Z81.1 Family history of alcohol abuse and dependence
CPT/HCPCS: 80053; 80061; 80306; 81001; 81025; 82075; 82248; 83036; 84443; 85025; 87635; 99285

== ENCOUNTER 2021-04-13 18:18 | Emergency (ER) | payer OTHER ==
[2021-04-13 18:51] VITALS: BP 105/69; PULSE 89; RESP 16; TEMP 98.5
--- NOTE | 2021-04-13 23:01 | ED ---
General Adult HPI - General Chief complaint: OB/Uterine Contractions Stated complaint: 6 weeks , possible miscarriage Time Seen by Provider: 04/13/21 21:09 Source: patient Mode of arrival: ambulatory Limitations: no limitations - History of Present Illness Initial comments: 35-year-old female approximate 6 weeks presents emergency department concerning that she is having a miscarriage. States that since she became she has been nauseated with tender breasts. States that she awoke this morning it is not have any of these symptoms and therefore is concerned for a miscarriage. Denies having any vaginal bleeding or cramping. She has seen an ANTHROPOLOGY DEPARTMENT CHAIR and had an ultrasound performed which demonstrated a normal intrauterine approximately 6 weeks along with a heartbeat. Patient cannot provide to me the name of the OB. When she reported her symptoms today her OB recommended that she go to the emergency room for evaluation. She denies dysuria, hematuria or difficultly voiding. No vaginal discharge. No other alleviating, precipitating or modifying factors - Related Data Home Medications Medication Instructions Recorded Confirmed No Known Home Medications 04/13/21 04/13/21 Allergies Allergy/AdvReac Type Severity Reaction Status Date / Time tuberculin, purified protein Allergy Rash/Hives Verified 04/13/21 21:33 deriva tuberculin,PPD,multi-puncture Allergy Rash/Hives Verified 04/13/21 21:33 Tetanus Vaccines and Toxoid AdvReac Swelling Verified 04/13/21 21:33 Review of Systems ROS Statement: Those systems with pertinent positive or pertinent negative responses have been documented in the HPI. ROS Other: All systems not noted in ROS Statement are negative. Past Medical History Past Medical History: No Reported History Additional Past Medical History / Comment(s): bacterial vaginosis, depression History of Any Multi-Drug Resistant Organisms: None Reported Past Surgical History: No Surgical Hx Reported Past Psychological History: Depression Smoking Status: Current every day smoker Past Alcohol Use History: None Reported Past Drug Use History: Heroin, Marijuana - Past Family History Family Family Medical History: No Reported History General Exam Limitations: no limitations General appearance: alert, in no apparent distress Head exam: Present: atraumatic, normocephalic, normal inspection Eye exam: Present: normal appearance, PERRL, EOMI. Absent: scleral icterus, conjunctival injection, periorbital swelling ENT exam: Present: normal exam, mucous membranes moist Neck exam: Present: normal inspection. Absent: tenderness, meningismus, lymphadenopathy Respiratory exam: Present: normal lung sounds bilaterally. Absent: respiratory distress, wheezes, rales, rhonchi, stridor Cardiovascular Exam: Present: regular rate, normal rhythm, normal heart sounds. Absent: systolic murmur, diastolic murmur, rubs, gallop, clicks GI/Abdominal exam: Present: soft, normal bowel sounds. Absent: distended, tenderness, guarding, rebound, rigid Extremities exam: Present: normal inspection, full ROM, normal capillary refill. Absent: tenderness, pedal edema, joint swelling, calf tenderness Back exam: Present: normal inspection Neurological exam: Present: alert, oriented X3, CN II-XII intact Psychiatric exam: Present: normal affect, normal mood Skin exam: Present: warm, dry, intact, normal color. Absent: rash Course Vital Signs 04/13/21 18:48 Temperature 98.5 F Pulse Rate 89 Respiratory 16 Rate Blood Pressure 105/69 O2 Sat by Pulse 98 Oximetry Medical Decision Making - Medical Decision Making On arrival patient is placed in room 33. A thorough history and physical exam was performed. I did leave the room to go get the ultrasound machine. When I returned to the room the patient has eloped Disposition Clinical Impression: Disposition: Left W/O Being Seen by Phys Condition: Undetermined Is patient prescribed a controlled substance at d/c from ED?: No Referrals: None,Stated [Primary Care Provider] - 1-2 days
== END 2021-04-13 21:55 | disposition left against medical advice (07) ==
LOC: EC 18:18
DX: Z53.21 Procedure and treatment not carried out due to patient leaving prior to being seen by health care provider (principal); O02.1 Missed abortion; F17.200 Nicotine dependence, unspecified, uncomplicated; F32.A Depression, unspecified; F12.90 Cannabis use, unspecified, uncomplicated; Z3A.01 Less than 8 weeks gestation of pregnancy; Z88.7 Allergy status to serum and vaccine
CPT/HCPCS: 99499